=== PATIENT | male | born 1985 | race American Indian/Alaskan Native ===

== ENCOUNTER 2019-03-25 09:44 | Emergency (ER) | payer OTHER ==
[2019-03-25 09:50] VITALS: BP 131/94
[2019-03-25] MEDS ORDERED: IBUPROFEN PO ONE (11:21)
--- NOTE | 2019-03-25 12:05 | Cat Scan Report ---
CT HEAD WITHOUT CONTRAST: HISTORY: Head injury, headache. TECHNIQUE: Sequential 2.5mm CT images. COMPARISON: none. FINDINGS: Cerebral Parenchyma: Within normal limits. Cerebellum: Within normal limits. Brainstem: Within normal limits. Ventricles: Normal. Sella: Normal. Extra-axial spaces: Normal. Basal Cisterns: Normal. Intracranial Hemorrhage: None. Midline Shift: None. Calvarium: Normal. Sinuses: Normal. Mastoid Air Cells: Normal. Visualized Orbits: Normal. IMPRESSION: Cranial CT scan within normal limits.
--- NOTE | 2019-03-25 12:06 | Emergency Department Report ---
ED Headache HPI - General Chief Complaint: Headache Stated Complaint: HEAD INJURY/HEADACHES Time Seen by Provider: 03/25/19 11:12 Source: patient Exam Limitations: no limitations - History of Present Illness Initial Comments: 33-year-old male presents to ED with headache 2 days. Patient is a 2 days ago he tripped and fell backward and hitting his head on the concrete. Denies LOC. Denies nausea, vomiting. Patient reported persistent headaches since then. Denies relief with Tylenol. Denies neck pain. Patient also reports 1 episode of right flank pain that occurred over the weekend approximately 3-4 days ago, but resolved. Denies fever, vomiting, urinary symptoms. Timing/Duration: other (2 days) Quality: throbbing Head Injury Location: occipital Recent Head Trauma: head trauma > 24 hrs ago Modifying Factors: improves with: movement Associated Symptoms: denies: confusion, fever/chills, nausea/vomiting, stiff neck Allergies/Adverse Reactions: Allergies No Known Allergies Allergy (Unverified 03/25/19 09:45) Home Medications: Ambulatory Orders Naproxen [Naprosyn] 500 mg PO BID #20 tablet 03/25/19 traMADol [Ultram] 50 mg PO Q6HR PRN #7 tablet 03/25/19 ED Review of Systems ROS: Stated complaint: HEAD INJURY/HEADACHES Other details as noted in HPI Comment: All other systems reviewed and negative Constitutional: denies: chills, fever Gastrointestinal: abdominal pain. denies: nausea, vomiting, diarrhea, constipation Genitourinary: denies: dysuria, frequency, hematuria, testicular pain Musculoskeletal: other (denies neck pain) Neurological: headache. denies: weakness, numbness, paresthesias ED Past Medical Hx - Past Medical History Previous Medical History?: No - Surgical History Past Surgical History?: No - Social History Smoking Status: Current Every Day Smoker Substance Use Type: None - Medications Home Medications: Home Medications Medication Instructions Recorded Confirmed Last Taken Type Naproxen [Naprosyn] 500 mg PO BID #20 tablet 03/25/19 Unknown Rx traMADol [Ultram] 50 mg PO Q6HR PRN #7 tablet 03/25/19 Unknown Rx ED Physical Exam - General Limitations: No Limitations General appearance: alert, in no apparent distress - Head Head exam: Present: atraumatic, normocephalic - Eye Eye exam: Present: normal appearance, PERRL, EOMI - ENT ENT exam: Present: mucous membranes moist - Neck Neck exam: Present: normal inspection, full ROM. Absent: tenderness - Respiratory Respiratory exam: Present: normal lung sounds bilaterally. Absent: respiratory distress - Cardiovascular Cardiovascular Exam: Present: regular rate, normal rhythm - GI/Abdominal GI/Abdominal exam: Present: soft. Absent: distended, tenderness - Extremities Exam Extremities exam: Present: normal inspection - Back Exam Back exam: Absent: CVA tenderness (R), CVA tenderness (L) - Neurological Exam Neurological exam: Present: alert, oriented X3, CN II-XII intact, normal gait. Absent: motor sensory deficit - Psychiatric Psychiatric exam: Present: normal affect, normal mood - Skin Skin exam: Present: warm, dry, intact, normal color ED Course Vital Signs 03/25/19 09:49 Temperature 98.4 F Pulse Rate 86 Respiratory 18 Rate Blood Pressure 131/94 O2 Sat by Pulse 98 Oximetry ED Medical Decision Making - Lab Data Result diagrams: 03/25/19 11:50 03/25/19 11:50 - Radiology Data Radiology results: report reviewed, image reviewed - Medical Decision Making - head injury 2 days ago w/ [facility], no neck pain/ tenderness - GCS=15 - CT Head negative - also complained of right flank pain, currently resolved - abdominal workup negative - return precautions given - outpt f/u advised - Differential Diagnosis intracranial injury, kidney stone, uti, appendicitis Critical care attestation.: If time is entered above; I have spent that time in minutes in the direct care of this critically ill patient, excluding procedure time. ED Disposition Clinical Impression: Closed head injury, Abdominal pain Disposition: TO HOME OR SELFCARE Is pt being admited?: No Condition: Stable Instructions: Concussion (ED), Minor Head Injury (ED) Prescriptions: Naproxen [Naprosyn] 500 mg PO BID #20 tablet traMADol [Ultram] 50 mg PO Q6HR PRN #7 tablet PRN Reason: Pain Referrals: PAUL LOYOLA MD [Primary Care Provider] - 3-5 Days [facility] [Provider Group] - 3-5 Days Time of Disposition: 13:04
[2019-03-25 12:23] LABS: Bilirubin,Urine NEG (Negative); Blood,Urine SM (Negative); Color,Urine Yellow (Yellow); Mucus,Urine 2+ /HPF; Protein,Urine <15 mg/dL mg/dL (Negative)
[2019-03-25 12:30] LABS: Basophils % (Auto) 0.4 % (0.0-1.8); Eosinophils # (Auto) 0.1 K/mm3 (0.0-0.4); Eosinophils % (Auto) 1.4 % (0.0-4.3); Hematocrit 45.1 % (35.5-45.6); Hemoglobin 15.1 gm/dl (11.8-15.2); Lymphocytes # (Auto) 2.8 K/mm3 (1.2-5.4); Lymphocytes % (Auto) 28.9 % (13.4-35.0); Mean Corpuscular HGB Conc 34 % (32-34); Mean Corpuscular Volume 81 fl (84-94); Monocytes % (Auto) 9.8 % (0.0-7.3); Platelet Count 237 K/mm3 (140-440); Red Blood Count 5.58 M/mm3 (3.65-5.03); Red Cell Distribution Width 14.2 % (13.2-15.2)
[2019-03-25 12:52] LABS: Alanine Aminotransferase 32 units/L (7-56); Albumin 4.5 g/dL (3.9-5); BUN/Creatinine Ratio 14; Blood Urea Nitrogen 14 mg/dL (9-20); Calcium 9.4 mg/dL (8.4-10.2); Hemolysis Index 3
== END 2019-03-25 13:17 | disposition home or self-care (01) ==
LOC: ED 09:44
DX: S09.90XA Unspecified injury of head, initial encounter (principal); R10.9 Unspecified abdominal pain; F17.200 Nicotine dependence, unspecified, uncomplicated; W01.198A Fall on same level from slipping, tripping and stumbling with subsequent striking against other object, initial encounter; Y93.89 Activity, other specified; Y92.89 Other specified places as the place of occurrence of the external cause; Y99.8 Other external cause status
CPT/HCPCS: 36415; 70450; 80053; 81001; 85025